=== PATIENT | male | born 2000 | race Caucasian/White ===

== ENCOUNTER 2023-09-22 08:12 | Emergency (ER) | payer MEDICAID ==
[~2023-09-22] VITALS: Ht 165.1 cm; Wt 901.7 kg
[2023-09-22 08:34] VITALS: BP 156/103; PULSE 110; RESP 16; TEMP 98.2; O2SAT 100
== END 2023-09-22 15:44 | disposition left against medical advice (07) ==
LOC: ER 08:12
DX: K62.89 Other specified diseases of anus and rectum (principal)
CPT/HCPCS: 74018; 99283